=== PATIENT | male | born 1955 | race Caucasian/White ===

== ENCOUNTER 2016-07-28 21:55 | Inpatient (IN) | payer MEDICAID ==
[~2016-07-28] VITALS: Ht 182.9 cm; Wt 116.2 kg
[~2016-07-28 21:55] MED LIST: GLUC1CAP18 PO; IBUP200T5 PO; MULT1CAP19 PO
[2016-07-28] MEDS ORDERED: AMLO10TA2 PO (22:06)
[2016-07-28] MEDS ORDERED: PRAV10TA2 PO (22:06)
[2016-07-28] MEDS ORDERED: LISI5TAB7 PO (22:06)
[2016-07-28] MEDS ORDERED: ASPI-650 PO (22:06)
[2016-07-28] MEDS ORDERED: CHOL100011 PO (22:06)
[2016-07-28] MEDS ORDERED: ONDANSETRON 2MG/ML, 2ML IVPush ONE (22:30)
[2016-07-28] MEDS ORDERED: SODIUM CHLORIDE 0.9% 1,000ML IVBOLUS ONE ×2 (22:30→23:00)
[2016-07-28] MEDS ORDERED: PLEASE ENTER HEIGHT AND WEIGHT MC SCH (22:30)
[2016-07-28] MEDS ORDERED: PLEASE ENTER ALLERGIES MC SCH ×2 (22:30)
[2016-07-28 22:41] LABS: BLOOD UREA NITROGEN 20 mg/dL (7-18)
[2016-07-28 22:46] LABS: ASPARTATE AMINO TRANSFERASE 25 U/L (15-37)
[2016-07-28 22:48] LABS: DIFF TOTAL CELLS COUNTED 100 CELL DIFF
[2016-07-28 22:51] LABS: VERIFY COUNTS? YES
[2016-07-28 22:52] LABS: IS PT STATUS REG ER OR PRE ER? YES
[2016-07-28] MEDS ORDERED: ONDANSETRON 2MG/ML, 2ML ONE (23:07)
[2016-07-28] MEDS ORDERED: OMNIPAQUE 350 MG/ML, 100ML BOTTLE ONE (23:21)
[2016-07-29] MEDS ORDERED: CIPROFLOXACIN/PMX 400MG/200ML 200 ML ONE (00:25)
[2016-07-29] MEDS ORDERED: METRONIDAZOLE PMX 500MG/100ML 100 ML ONE (00:25)
[2016-07-29] MEDS ORDERED: METRONIDAZOLE PMX 500MG/100ML 100 ML IV ONE (00:30)
[2016-07-29] MEDS ORDERED: CIPROFLOXACIN/PMX 400MG/200ML 200 ML IV ONE (00:30)
[2016-07-29] MEDS ORDERED: SODIUM CHLORIDE 0.9% 1,000 ML IV ONE (00:32)
[2016-07-29] MEDS ORDERED: SODIUM CHLORIDE 0.9% 1,000ML IVBOLUS ONE ×2 (01:00→07:30)
[2016-07-29] MEDS ORDERED: ONDANSETRON ODT 4 MG PO PRN (01:00)
[2016-07-29] MEDS: CIPROFLOXACIN/PMX 400MG/200ML 200 ML IV SCH ×2 (01:00→15:29)
[2016-07-29] MEDS ORDERED: ONDANSETRON 2MG/ML, 2ML IVPush PRN (01:00)
[2016-07-29] MEDS ORDERED: LABETALOL 5MG/ML, 20ML IV PRN (01:00)
[2016-07-29] MEDS: METRONIDAZOLE PMX 500MG/100ML 100 ML IV SCH ×3 (01:00→17:37)
[2016-07-29] MEDS: HEPARIN 5,000 UNITS/ML, 1ML SQ SCH ×3 (01:00→17:37)
[2016-07-29] MEDS ORDERED: ONDANSETRON 2MG/ML, 2ML IVP PRN (01:00)
[2016-07-29] MEDS ORDERED: ACETAMINOPHEN 325 MG TABLET PO PRN (01:00)
[2016-07-29 02:02] VITALS: BP 111/67
[2016-07-29 03:37] LABS: BLOOD UREA NITROGEN 21 mg/dL (7-18)
[2016-07-29] MEDS: NS + 20MEQ KCL 1,000 ML IV SCH ×2 (03:44→15:37)
[2016-07-29 05:34] LABS: DAU SCREEN DISCLAIMER
[2016-07-29 06:20] LABS: OCCBLD OBC PASS
[2016-07-29 08:19] VITALS: BP 106/65
[2016-07-29 08:52] LABS: DIFF TOTAL CELLS COUNTED 100 CELL DIFF
[2016-07-29 08:57] LABS: VERIFY COUNTS? YES
[2016-07-29] MEDS: CHOLECALCIFEROL 1,000 UNIT TABLET PO SCH (09:50)
[2016-07-29] MEDS: FAMOTIDINE 20 MG/2 ML IV SCH ×2 (09:50→22:53)
[2016-07-29] MEDS: ASPIRIN 325 MG TABLET EC PO SCH (09:50)
[2016-07-29 14:25] VITALS: BP 107/68
[2016-07-29 20:20] VITALS: BP 156/66
[2016-07-30] MEDS: METRONIDAZOLE PMX 500MG/100ML 100 ML IV SCH ×3 (01:07→17:21)
[2016-07-30] MEDS: NS + 20MEQ KCL 1,000 ML IV SCH ×2 (01:07→08:00)
[2016-07-30 02:40] VITALS: BP 122/78
[2016-07-30] MEDS: CIPROFLOXACIN/PMX 400MG/200ML 200 ML IV SCH ×2 (04:05→15:30)
[2016-07-30 05:40] LABS: BLOOD UREA NITROGEN 13 mg/dL (7-18)
[2016-07-30] MEDS: HEPARIN 5,000 UNITS/ML, 1ML SQ SCH ×3 (06:38→22:13)
[2016-07-30 06:56] VITALS: BP 125/79
[2016-07-30] MEDS: FAMOTIDINE 20 MG/2 ML IV SCH (08:46)
[2016-07-30] MEDS: CHOLECALCIFEROL 1,000 UNIT TABLET PO SCH (08:46)
[2016-07-30] MEDS: ASPIRIN 325 MG TABLET EC PO SCH (08:46)
[2016-07-30 12:33] VITALS: BP 126/81
[2016-07-30 18:31] VITALS: BP 152/85
[2016-07-30] MEDS: FAMOTIDINE 20 MG TABLET PO SCH (21:00)
[2016-07-31 01:05] VITALS: BP 146/87
[2016-07-31] MEDS: METRONIDAZOLE PMX 500MG/100ML 100 ML IV SCH ×2 (01:23→10:08)
[2016-07-31] MEDS: CIPROFLOXACIN/PMX 400MG/200ML 200 ML IV SCH (04:17)
[2016-07-31] MEDS: HEPARIN 5,000 UNITS/ML, 1ML SQ SCH (06:40)
[2016-07-31 07:25] VITALS: BP 153/92
[2016-07-31 07:28] LABS: BLOOD UREA NITROGEN 10 mg/dL (7-18)
[2016-07-31] MEDS ORDERED: AMLODIPINE 5 MG TABLET PO SCH (09:00)
[2016-07-31] MEDS ORDERED: LISINOPRIL 5 MG TABLET PO SCH (09:00)
[2016-07-31] MEDS: FAMOTIDINE 20 MG TABLET PO SCH (10:09)
[2016-07-31] MEDS: CHOLECALCIFEROL 1,000 UNIT TABLET PO SCH (10:09)
[2016-07-31] MEDS: ASPIRIN 325 MG TABLET EC PO SCH (10:09)
[2016-07-31] MEDS ORDERED: Ondansetron PO (11:56)
[2016-07-31 12:42] VITALS: BP 158/82
== END 2016-07-31 13:48 | disposition home or self-care (01) | DRG 872 ==
LOC: ED 22:58 → EDIP 07-29 00:32 → 3NE 07-29 01:20
PROVIDERS: ADMIT Family Medicine; ATTEND Family Medicine
PROC: 0T9B70Z Drainage of Bladder with Drainage Device, Via Natural or Artificial Opening (ICD-10-PCS; principal; 2016-07-29)
DX: A41.9 Sepsis, unspecified organism (principal); A09 Infectious gastroenteritis and colitis, unspecified; N17.9 Acute kidney failure, unspecified; F19.20 Other psychoactive substance dependence, uncomplicated; R57.9 Shock, unspecified; E86.0 Dehydration; I10 Essential (primary) hypertension; E78.5 Hyperlipidemia, unspecified; E55.9 Vitamin D deficiency, unspecified; E78.00 Pure hypercholesterolemia, unspecified; F10.21 Alcohol dependence, in remission; Z80.0 Family history of malignant neoplasm of digestive organs; Z83.3 Family history of diabetes mellitus; Z79.899 Other long term (current) drug therapy; Z79.82 Long term (current) use of aspirin
CPT/HCPCS: 36415; 71010; 74177; 80048; 80053; 80307; 81001; 82272; 83605; 83690; 84145; 84484; 85025; 86759; 87040; 87046; 87324; 87328; 87329; 87798; 87899; 93005; 96361; 96365; 96368; 96375; J0744; J1644; J2405; J3480; Q9967; J7030; S0028

== ENCOUNTER 2019-12-05 16:46 | Emergency (ER) | payer MEDICAID ==
[~2019-12-05] VITALS: Ht 182.9 cm; Wt 92.3 kg
[~2019-12-05 16:46] MED LIST changes: +AMLO10TA8 PO; +ASPI-650 PO; +CHOL100011 PO; +IBUP-1902 PO; -IBUP200T5 PO; +LISI5TAB7 PO; +Ondansetron PO; +PRAV10TA2 PO
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
[2019-12-05] MEDS ORDERED: ONDANSETRON ODT 4 MG ONE (17:26)
[2019-12-05 17:29] LABS: MEAN CORPUSCULAR HEMOGLOBIN 30.3 pg (27.5-34.5); MEAN CORPUSCULAR HGB CONC 33.1 g/dL (33.2-36.2); MEAN CORPUSCULAR VOLUME 91.5 fL (81-97); MEAN PLATELET VOLUME 7.5 fL (7.4-10.4); PLATELET COUNT 371 x10^3/uL (130-400); RED BLOOD COUNT 4.95 x10^6/uL (4.38-5.82); RED CELL DISTRIBUTION WIDTH 12.9 % (9.4-14.8)
[2019-12-05] MEDS ORDERED: ONDANSETRON ODT 4 MG PO ONE (17:30)
[2019-12-05 17:41] LABS: ALANINE AMINOTRANSFERASE 37 U/L (12-78); ALBUMIN 4.2 g/dL (3.4-5.0); ANION GAP 8 mmol/L (5-15); CALCIUM 9.2 mg/dL (8.5-10.1); CHLORIDE 111 mmol/L (98-107); CREATININE 0.86 mg/dL (0.7-1.3)
[2019-12-05 17:43] LABS: ALKALINE PHOSPHATASE 63 U/L (45-117); BILIRUBIN,TOTAL 0.7 mg/dL (0.2-1.0); TOTAL PROTEIN 8.2 g/dL (6.4-8.2)
[2019-12-05 17:49] LABS: MD YES
[2019-12-05 17:50] LABS: <PLATELET ESTIMATE> ADEQUATE; <PLT MORPHOLOGY> NORMAL PLT MORPH; <RBC MORPHOLOGY> NORMAL; BAND#(MANUAL) 0.39 x10^3/uL; BANDS%(MANUAL) 3 % (0-7); EOS#(MANUAL) 0.26 x10^3/uL (0.0-0.4); EOS% (MANUAL) 2 % (1-7); LYMPH#(MANUAL) 0.13 x10^3/uL (1-3.4); LYMPHS% (MANUAL) 1 % (22-44); MONOS#(MANUAL) 0.13 x10^3/uL (0.3-2.7); MONOS% (MANUAL) 1 % (2-9); SEG#(MANUAL) 12.18 x10^3/uL (1.8-6.8); SEGS% (MANUAL) 93 % (42-75)
--- NOTE | 2019-12-05 18:16 | NUR ---
PATIENT STATES HE CANNOT URINATE AT THIS TIME. URINAL AT BEDSIDE
--- NOTE | 2019-12-05 18:52 | NUR ---
Report given to JASON Trotter. Plan of care discussed
--- NOTE | 2019-12-05 19:15 | NUR ---
Report received from JASON Olivera. This RN to assume care.
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
[2019-12-05] MEDS ORDERED: POTASSIUM CHLORIDE 20 MEQ TAB.ER.PRT PO ONE (19:30)
[2019-12-05] MEDS ORDERED: MAALOX/HYOSCYAMINE/LIDOCAINE 45 ML BTL PO ONE (19:30)
[2019-12-05] MEDS ORDERED: POTASSIUM CHLORIDE 20 MEQ TAB.ER.PRT ONE (19:33)
[2019-12-05] MEDS ORDERED: MAALOX/HYOSCYAMINE/LIDOCAINE 45 ML BTL ONE (19:33)
[2019-12-05 20:48] LABS: MICROSCOPIC AUTO
[2019-12-05 21:39] VITALS: BP 114/75
== END 2019-12-05 21:40 | disposition home or self-care (01) ==
LOC: ED 21:24
DX: K29.00 Acute gastritis without bleeding (principal); R11.2 Nausea with vomiting, unspecified; I10 Essential (primary) hypertension
CPT/HCPCS: 36415; 74022; 80053; 81001; 83690; 85025; 93005; 99285; Q0162